=== PATIENT | female | born 1980 | race Two or more races ===

== ENCOUNTER 2021-06-03 17:23 | Emergency (ER) | payer OTHER ==
[~2021-06-03] VITALS: Ht 157.5 cm; Wt 52.2 kg
[2021-06-03] MEDS ORDERED: SYNTHROID75 MCG PO (17:32)
== END 2021-06-03 20:46 | disposition home or self-care (01) ==
LOC: ER 17:23
DX: N93.8 Other specified abnormal uterine and vaginal bleeding (principal)

== ENCOUNTER 2024-02-20 11:05 | Emergency (ER) | payer OTHER ==
[~2024-02-20] VITALS: Ht 157.5 cm; Wt 59.0 kg
[~2024-02-20 11:05] MED LIST: SYNTHROID75 MCG PO
[2024-02-20] MEDS ORDERED: LEVO-T100 MCG PO (11:42)
[2024-02-20] MEDS ORDERED: KETOROLAC TROMETHAMINE 60 MG VIAL IM STA (12:49)
[2024-02-20 13:05] LABS: HEMATOCRIT 36.8 % (36.0-45.00); HEMOGLOBIN 12.3 g/dL (12.0-15.00); MEAN CELL VOLUME 82.6 fL (80.00-100.00); MEAN CORPUSCULAR HEMOGLOBIN 27.7 pg (27.00-32.0); MEAN CORPUSCULAR HGB CONC 33.5 g/dl (32.0-36.0); PLATELET COUNT 275 K/uL (150-450); RED BLOOD COUNT 4.45 M/uL (4.00-6.00); RED CELL DISTRIBUTION WIDTH 14.2 % (11.5-14.5)
[2024-02-20 13:38] LABS: PH,URINE 7.5 (5.0-8.0); URINE APPEARANCE Clear; URINE BILIRRUBIN Negative (NEGATIVE); URINE BLOOD Negative; URINE COLOR Yellow; URINE GLUCOSE Negative (NEGATIVE); URINE KETONE Negative (NEGATIVE); URINE LEUKOCYTE Negative; URINE NITRATE Negative; URINE PROTEIN Negative (NEGATIVE)
[2024-02-20 13:42] LABS: URINE BACTERIA 172.5 uL (0.0-1933); URINE EPITHELIAL CELLS 9.5 uL (0.0-38.8); URINE WBC 2.9 uL (0.0-23.2)
[2024-02-20 14:05] LABS: URINE RBC 0.9 uL (0.0-20.8)
[2024-02-20 14:07] LABS: ANION GAP 10 (10.0-20.0); BLOOD UREA NITROGEN 10 mg/dL (7-18); BUN CREA RATIO 14 (7.0-25.0); CALCIUM 8.8 mg/dL (8.5-10.1); CARBON DIOXIDE 24 mEq/L (21-32); CHLORIDE 112 mmol/L (98-107); CREATININE SERUM 0.73 mg/dL (0.55-1.02); GFR 86.61; GLUCOSE FASTING 86 mg/dL (65-100); OSMOLALITY SERUM 281 MOSM/KG (275-295); POTASSIUM 4.02 mEq/L (3.5-5.1); SODIUM 142 mmol/L (136-145)
[2024-02-20 14:09] LABS: HCG QUANTITATIVE < 1 mUI/mL (1-3)
== END 2024-02-20 14:32 | disposition home or self-care (01) ==
LOC: ER 11:06
PROVIDERS: General Practice
DX: N83.201 Unspecified ovarian cyst, right side (principal); R10.2 Pelvic and perineal pain; R10.9 Unspecified abdominal pain; E03.8 Other specified hypothyroidism